=== PATIENT | female | born 1965 | race Caucasian/White ===

== ENCOUNTER 2017-01-25 19:00 | Emergency (ER) | payer MEDICAID, OTHER ==
[~2017-01-25] VITALS: Ht 177.8 cm; Wt 81.0 kg
[2017-01-25 19:07] VITALS: BP 133/102; PULSE 90; RESP 20; TEMP 98.3; O2SAT 100
--- NOTE | 2017-01-25 19:48 | PD ---
HPI Chief Complaint: Laceration/Skin Injury Time Seen by Provider: 19:40 Travel History International Travel<30 days: No Contact w/Intl Traveler<30days: No Traveled to known affect area: No History of Present Illness HPI 51-year-old female presents to the emergency room for evaluation of laceration to her left medial foot that occurred earlier today. Patient was walking by a metal crate when her foot got caught on the edge of the metal and she sustained a large laceration. She cleaned the wound with hydrogen peroxide and applied Lamisil because it was the only thing she had available. She applied a Band- Aid. States bleeding was minimal. Denies significant pain. Last tetanus was 3 years ago. PFSH Past Medical History ?: Not Social History Alcohol Use: No Tobacco Use: No Substance Use: No Allergies-Medications (Allergen,Severity, Reaction): Coded Allergies: Codeine (Verified Allergy, Severe, SHAKEY, 05/15/16) Epinephrine (Verified Allergy, Severe, PALPITATIONS, 05/15/16) Reported Meds & Prescriptions Reported Meds & Active Scripts Active No Active Prescriptions or Reported Medications Review of Systems Except as stated in HPI: all other systems reviewed are Neg Physical Exam Narrative GENERAL: Well-nourished, well-developed female in no acute distress. Afebrile. Ambulatory. SKIN: Focused skin assessment warm/dry. There is a 3.5 cm superficial laceration to the left medial foot that is very well approximated. Nonbleeding. HEAD: Normocephalic. EYES: No scleral icterus. No injection or drainage. NECK: Supple, trachea midline. No JVD or lymphadenopathy. CARDIOVASCULAR: Regular rate and rhythm without murmurs, gallops, or rubs. RESPIRATORY: Breath sounds equal bilaterally. No accessory muscle use. MUSCULOSKELETAL: No cyanosis, or edema. Data Data Last Documented VS Vital Signs Date Time Temp Pulse Resp B/P Pulse Ox O2 Delivery O2 Flow Rate FiO2 01/25/17 19:07 98.3 90 20 133/102 100 MDM Medical Decision Making Medical Screen Exam Complete: Yes Emergency Medical Condition: Yes Medical Record Reviewed: Yes Differential Diagnosis Laceration, abrasion, contusion Narrative Course 51-year-old female presents to the emergency room for evaluation of a laceration to her left medial foot that occurred earlier today. Patient cut herself on a piece of metal sticking out of a crate. Last tetanus was 3 years ago. His exam reveals a 3.5 cm superficial laceration to the left medial foot that is very well approximated. No bleeding. Wound was thoroughly cleansed with soap and water and then repaired with Steri-Strips and glue. Patient discharged with glue and wound care instructions and told to follow up with her primary care physician or return for worsening symptoms. She understands and agrees to plan. Procedures Procedure Narrative LACERATION LOCATION: Left medial foot LENGTH: 3.5 cm REPAIR: The laceration was thoroughly cleansed with soap and water. Wound was approximated with Steri-Strips and glue was applied over the strips. Patient tolerated procedure well. Diagnosis Primary Impression: Laceration of foot Qualified Code: S91.312A - Laceration of foot, left, initial encounter Referrals: Primary Care Physician Patient Instructions: General Instructions, Laceration (ED), Skin Adhesive Care (ED) Additional Instructions: Rest and drink plenty of fluids. Keep wound clean and dry. Apply triple antibiotic ointment daily after glue falls off. Follow-up with a primary care physician. Return to the emergency room for worsening symptoms. Scripts No Active Prescriptions or Reported Meds Disposition: 01 DISCHARGE HOME Condition: Stable Concetta Baum Jan 25, 2017 19:48
== END 2017-01-25 20:00 | disposition home or self-care (01) ==
LOC: PHEFT 19:00
DX: S91.312A Laceration without foreign body, left foot, initial encounter (principal); W26.8XXA Contact with other sharp object(s), not elsewhere classified, initial encounter
CPT/HCPCS: 12002

== ENCOUNTER 2017-07-17 11:38 | Emergency (ER) | payer MEDICAID ==
[~2017-07-17] VITALS: Ht 177.8 cm; Wt 80.0 kg
[2017-07-17 11:43] VITALS: BP 138/86; PULSE 97; RESP 18; TEMP 98.5; O2SAT 97
--- NOTE | 2017-07-17 12:01 | PD ---
HPI Chief Complaint: Injury Time Seen by Provider: 11:55 Travel History International Travel<30 days: No Contact w/Intl Traveler<30days: No Traveled to known affect area: No History of Present Illness HPI 52-year-old female presents for evaluation of left ankle pain. She reports that yesterday she is walking on the steps of her deck when she missed a step and twisted her left ankle in an inversion mechanism. Since then she has developed increasing or worsening pain and swelling along the lateral aspect of left ankle. Pain is aching, constant, worse with dorsi and plantar flexion and movement. She denies any other injuries and she has no other complaints at this time. [facility] Past Medical History Medical History: Denies Significant Hx Tetanus Vaccination: < 5 Years Influenza Vaccination: No ?: Not LMP: MENOPAUSAL Past Surgical History Tonsillectomy: Yes Social History Alcohol Use: No Tobacco Use: No Substance Use: No Allergies-Medications (Allergen,Severity, Reaction): Coded Allergies: codeine (Verified Allergy, Severe, SHAKEY, 07/17/17) epinephrine (Verified Allergy, Severe, PALPITATIONS, 07/17/17) Reported Meds & Prescriptions Reported Meds & Active Scripts Active No Active Prescriptions or Reported Medications Review of Systems Musculoskeletal: Positive: Limited ROM, Edema, Pain Skin: Positive Other (denies open wounds) Physical Exam Narrative GENERAL: Well-developed well-nourished female in no acute distress SKIN: Warm and dry. HEAD: Atraumatic. Normocephalic. CARDIOVASCULAR: Regular rate and rhythm. No murmur appreciated. RESPIRATORY: No accessory muscle use. Clear to auscultation. Breath sounds equal bilaterally. MUSCULOSKELETAL: Soft tissue swelling around the left ankle lateral malleolus with associated tenderness to palpation. There is no tenderness to palpation to the metatarsals of the left foot. The Achilles tendon is intact and nontender. No tenderness to palpation to the medial left ankle joint. There is pain with dorsi and plantar flexion of the left ankle which is limited in range. No tenderness to palpation of the left knee. 2+ dorsalis pedis pulse. NEUROLOGICAL: Awake and alert. No obvious cranial nerve deficits. Motor grossly within normal limits. Normal speech. PSYCHIATRIC: Appropriate mood and affect; insight and judgment normal. Data Data Last Documented VS Vital Signs Date Time Temp Pulse Resp B/P (MAP) Pulse Ox O2 Delivery O2 Flow Rate FiO2 07/17/17 11:43 98.5 97 18 138/86 (103) 97 Orders Orders Ankle, Complete ([id number]) (07/17/17 ) Ice/Cold Pack (07/17/17 11:58) Splint Or Brace Apply/Monitor (07/17/17 12:18) Crutches (07/17/17 12:18) Ed Discharge Order (07/17/17 12:18) MDM Medical Decision Making Medical Screen Exam Complete: Yes Emergency Medical Condition: Yes Medical Record Reviewed: Yes Differential Diagnosis Lateral ankle sprain, avulsion fracture, fibular fracture Narrative Course X-ray imaging will be obtained. Ice pack provided. X-ray imaging reveals soft tissue swelling with no fracture. The patient has a lateral ankle sprain. She is being discharged with crutches and ankle stirrup splint. Diagnosis Primary Impression: Left ankle sprain Additional Instructions: Crutches as needed. Ankle stirrup splint for immobilization as needed. Rest. Ice several times a day 20 minutes at a time. Elevate. Tylenol or Motrin for pain. Once swelling has resolved perform range of motion activities as discussed. Gradually return to normal activities avoiding activities that increase the pain over the next 3-4 weeks. Follow-up with primary care physician as needed and return for any emergent medical conditions. Med/Other Pt SpecificInfo: Orthopedic Instructions Scripts No Active Prescriptions or Reported Meds Disposition: 01 DISCHARGE HOME Condition: Stable Goyo Pitts Jul 17, 2017 12:01
--- NOTE | 2017-07-17 12:13 | RADRPT ---
EXAM DATE/TIME: 07/17/2017 12:03 [facility] COMPARISON: No previous studies available for comparison. INDICATIONS : Left lateral ankle pain and swelling, fell on steps yesterday. MEDICAL HISTORY : None. SURGICAL HISTORY : None. ENCOUNTER: Initial ACUITY: 2 days PAIN SCORE: 5/10 LOCATION: Left lateral ankle FINDINGS: Three-view examination of the ankle was performed. There is moderate lateral soft tissue swelling wit hout radiopaque foreign body. The osseous structures are intact and in normal alignment. Ankle mortis e is intact. No fractures seen. CONCLUSION: Lateral soft tissue swelling. No fracture seen. Ronnie Strong MD on July 17, 2017 at 12:09 Board Certified Radiologist. This report was verified electronically.
== END 2017-07-17 12:46 | disposition home or self-care (01) ==
LOC: PHEFT 11:38
DX: S93.402A Sprain of unspecified ligament of left ankle, initial encounter (principal); X50.1XXA Overexertion from prolonged static or awkward postures, initial encounter
CPT/HCPCS: 73610; 99283; E0113; L1906